=== PATIENT | female | born 1935 | race Caucasian/White ===

== ENCOUNTER 2018-07-28 16:51 | Inpatient (IN) | payer OTHER, MEDICARE ==
[~2018-07-28] VITALS: Ht 165.1 cm; Wt 77.6 kg
[~2018-07-28 16:51] MED LIST: ACETAMINOPHEN325 M1 PO; ADULT LOW DOSE81 MG PO; CALCIUM 500 +1 EAC5 PO; CENTRUM SILVER1 EAC4 PO; FISH OIL 1,0001 EAC7 PO; GLUCOPHAGE500 MG PO; LOVASTAT20 PO; NEURONTIN600 MG PO; NORVASC10 MG PO; PERCOCET 5-3251 EACH PO; PREMARIN0.625 MG PO; TRIAMTERENE-HC1 EAC1 PO; VITAMIN E400 UNIT PO; ZANAFLEX4 M1 PO; ZYVOX 600 MG PO
[2018-07-28 16:52] VITALS: BP 144/91
[2018-07-28 19:21] LABS: ABSOLUTE NEUTROPHILS 8.2 thou/uL (1.4-8.2); BASOPHILS 0.7 % (0.0-2.0); EOSINOPHILS 3.1 % (0.0-3.0); HEMOGLOBIN 12.4 gm/dL (12.0-15.0); LYMPHOCYTES 17.8 % (24.0-44.0); MCH 31.2 pg (26.0-34.0); MCHC 35.3 g/dL (28.0-37.0); MCV 88.3 fL (80.0-100.0); MONOCYTES 7.1 % (1.0-8.0); PLATELET COUNT 342 thou/uL (150-400); POLYS 71.3 % (36.0-66.0); RBC 3.97 mil/uL (4.20-5.00); RDW 13.1 % (10.5-14.5); WBC 11.5 thou/uL (4.0-11.0)
[2018-07-28 19:29] LABS: CALCIUM 9.4 mg/dL (8.5-10.1); CREATININE 0.8 mg/dL (0.6-1.0); POTASSIUM 3.9 mmol/L (3.5-5.1)
[2018-07-28 21:14] VITALS: BP 111/63
[2018-07-28 21:25] VITALS: BP 111/63
--- NOTE | 2018-07-28 21:40 | NUR ---
Pt. admitted to the unit from the emergency room via cart accompanied by staff and dgt. Pt. is alert and oriented. Admission assessment and history is completed. She offers no c/o pain. Bed alarm is on.
[2018-07-28 22:00] VITALS: BP 135/51
[2018-07-28] MEDS ORDERED: ATIVAN0.5 MG (23:13)
[2018-07-28] MEDS ORDERED: ESTRADIOL 1 MG T1 M1 PO (23:14)
[2018-07-28] MEDS ORDERED: VITAMIN D3400 UNIT PO (23:16)
[2018-07-28] MEDS ORDERED: PYRIDOXINE HCL50 MG (23:17)
[2018-07-28] MEDS ORDERED: MELATONIN3 MG (23:18)
[2018-07-28] MEDS ORDERED: CALCIUM 500 +1 EAC5 (23:23)
[2018-07-29 03:45] VITALS: BP 133/77
--- NOTE | 2018-07-29 05:30 | NUR ---
Pt. rested quietly at short intervals during the night when checked on during frequent rounds. Had pain med for c/o pain in her foot (see emar) which was helpful. Up to the bedside comode with standby assistance. Bed alarm is on.
[2018-07-29 08:16] VITALS: BP 146/60
--- NOTE | 2018-07-29 09:15 | NUR ---
WOUND CONSULT; ASSESSMENT COMPLETED OF THE FEET BILATERALLY. 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 NO DRAINAGE BUT PINK AND WARM TO TOUCH. THE RIGHT GREAT TOE IS CALLOUSED. THE PATIENT STATES SHE SEES PODIATRY FOR THIS. RECOMMENDATIONS; 1- CONSIDER CONSULTING DR JAIME TRIPP (PODIATRY) DISCUSSED WITH JOEY
[2018-07-29 09:25] LABS: URINE BILIRUBIN NEGATIVE (Negative); URINE BLOOD NEGATIVE (Negative); URINE CLARITY CLEAR; URINE COLOR YELLOW; URINE GLUCOSE-RANDOM* NEGATIVE (Negative); URINE KETONES NEGATIVE (Negative); URINE LEUKOCYTES-REFLEX NEGATIVE (Negative); URINE NITRITE-REFLEX NEGATIVE (Negative); URINE PROTEIN (DIPSTICK) NEGATIVE (Negative); URINE UROBILINOGEN 0.2 E.U./dl (0.2-1.0)
[2018-07-29 15:36] VITALS: BP 142/64
--- NOTE | 2018-07-29 16:27 | NUR ---
PT ADMITTED RELATED TO LEFT DIABETIC FOOT INFECTION. CM REVIEWED CHATRT AND SPOKE WITH CARE TEAM. CM MET WITH PT AT BEDSIDE THIS DAY. PT IS A&OX4. CM ROLE INTRODUCED. PT INDICATED SHE LIVES IN A HOUSE WITH HER DTR WITH 2 STESPS TO ENTER AND NONE INSIDE. PT INDICATED SHE HAD USED A CANE TO ASSIST WITH MOBILITY AND THAT SHE HAS A FWW SHE CAN USE TOO. PT INDICATED SHE HAD [facility] IN THE PAST. PT INDICATED SHE PLANS TO RETURN HOME ONCE MEDICALLY STABLE. CM TO FOLLOW INDICATED WITH DC PLANNING.
--- NOTE | 2018-07-29 18:11 | NUR ---
PT STABLE THROUGHOUT SHIFT. PT C/O PAIN THROUGHOUT SHIFT, TREATED WITH MEDICATION WHICH OFFERED PARTIAL RELIEF. PT RESTING COMFORTABLY.
[2018-07-29 19:43] VITALS: BP 141/54
[2018-07-30 00:08] LABS: GLYCOHEMOGLOBIN (HGB A1C) 6.2 % (4.8-5.6)
--- NOTE | 2018-07-30 03:20 | NUR ---
PATIENT AOX4 MAKES NEEDS KNOWN. PATIENT IS NON COMPLIANT WITH CARE AND MEDS. PATIENT REFUSED VANCOMYCING, LEVONOX SQ, HS MEDS PATIENT CONTINUES TO SAY SHE HAS TO TALK TO THE DOCTOR BEFORE SHE TAKES THE ANY MEDICATION.PATIENT EDUCATED THE NEED OF TAKING IV VANCOMYCIN AND LEVONOX,BUT PATIENT DECLINED SAYING THE ANTIBIOTIC IS MAKING HER HAVE LOOSE STOOLS AND SHE DONT NEED LEVONOX BECAUSE SHE HAS NEVER HAD BLOOD CLOTS. DIRECTOR RECORDS MANAGEMENT CALLED AND NOTIFIED OF PATIENT REFUSING ANTIBIOTIC AND LEVONOX. NO NEW ORDER BUT TO NOTIFIED IN THE AM. PATIENT REEDUCATED TO CALL FOR HELP AND AVODING TO BEAR WEIGHT ON BLE, PATIENT FORGETS AND AMBULATES IN THE ROOM AND POSSIBLE PATIENT KNOWNS HOW TO DISCONECT THE ALARM. PATIENT BLE DRESSINGS ARE C/D/I. PATIENT DENIED PAIN OR DISCOMFORT. PATIENT IN BED ASLEEP AT THIS TIME BREATHING REGULAR AND UNLABOURED.
[2018-07-30 05:05] VITALS: BP 142/66
[2018-07-30 08:32] VITALS: BP 137/54
[2018-07-30 14:37] VITALS: BP 105/70
[2018-07-30 14:43] VITALS: BP 141/59
[2018-07-30 15:08] VITALS: BP 141/59
--- NOTE | 2018-07-30 15:22 | NUR ---
PHYSICIAN INDICATED THAT AFTER PODIATRY VISITS THIS DAY PT MAY BE MEDICALLY STABLE TO DISCHARGE HOME. CM NOTIFIED PT AND SHE INDICATED THAT SHE AND HER DTR USE A TRANSPORT COMPANY AND SHE ASKED THAT CM CALL HER DTR TO INFORM HER OF POSSIBLE DISCHARGE. CM CALLED AND SPOKE WITH PT'S DTR HILL SHE INDICATED THAT THEY USE 10/10 TAXI. CM INDICATED THAT NURSE WOULD CALL [facility] LATER ON AND NOTIFY HER IF TRANSPORT NEEDS TO BE ARRANGED. CM NOTIFIED [facility] THAT PT WOULD LIKE TO RESUME HH SERVICES UPON DC. NO OTHER CM INTERVENTION INDICATED AT THIS TIME. CASE CLOSED.
--- NOTE | 2018-07-30 17:46 | NUR ---
PT STABLE THROUGHOUT SHIFT. PT C/O PAIN WHICH WAS TREATED WITH MEDICATION. DRESSINGS CHANGED. POSSIBLE DC TOMORROW.
[2018-07-30 19:56] VITALS: BP 147/61
[2018-07-31 03:41] VITALS: BP 153/72
[2018-07-31 07:30] VITALS: BP 152/69
[2018-07-31 07:54] LABS: FOLIC ACID 25.7 ng/mL (8.6-58.9)
--- NOTE | 2018-07-31 11:32 | HC ---
[facility] [place] [address] CONSULTATION Name: RODRIGO GRIMES Room #: 461-P ADM IN M.R.#: [id number] Admission: 07/28/18 ������������������ Attend Phys: Kade Maddox MD Discharge: ������������������ Date of : 34 Report #: [id number] THIS REPORT FOR: //name// CC: Rod Dill DATE OF SERVICE: 07/29/2018 INTRODUCTION: The patient is an 83-year-old woman who has been admitted to [facility] with cellulitis and ulceration of the left foot and ulceration of the right great toe stump. 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 She has had issues with a mid foot deformity consistent with a Charcot foot and subsequently has a maximum point of weightbearing pressure in the right medial arch. This is in the area of current infection source. She states that several weeks ago, she noted increasing redness and drainage in the area and eventually has led to full cellulitis involving the dorsum of her foot to the ankle level. She has also had some groin pain on this limb as well. A recent venous Doppler has demonstrated no evidence of DVT. The right foot hallux stump has historically been a source for abnormal weightbearing pressure, callus development and preulceration. Currently, there is an area of drainage on the dorsal lateral aspect of the stump and a thick callus beneath the weightbearing area of this stump. There is no apparent cellulitis of this foot. The patient had been outfitted with specialty footwear and wears them regularly. The quality of these insoles was viewed as reasonably good on her last visit to my office in March 2018. Currently, she is being seen for consultation regarding the foot wounds and cellulitis. PAST MEDICAL HISTORY: Also includes a history of hypercholesterolemia, high blood pressure. She has had difficulty sleeping due to anxiety. ALLERGIES: THE PATIENT HAS ALLERGIES TO MANY ANTIBIOTICS INCLUDING PENICILLIN AND CEPHALEXIN. Currently, she is on vancomycin for her cellulitis. The remainder of her past medical history with regard to this consultation is unremarkable. PHYSICAL EXAMINATION: EXTREMITIES: Her pedal exam reveals dorsalis pedis, posterior tibial pulses [address] [address] CONSULTATION Name: RODRIGO GRIMES Room #: 461-P ADM IN M.R.#: [id number] Admission: 07/28/18 ������������������ Attend Phys: Kade Maddox MD Discharge: ������������������ Date of : 34 Report #: [id number] graded at 1/4 bilaterally. Capillary refill time is within normal limits. NEUROLOGICAL: The patient lacks a normal sensation in both feet with lost protective threshold as tested with [place] monofilament. Left foot, most notably has a 4 cm raised area of inflammation with a central nidus of skin injury. This area was debrided following skin prep and was noted to be full thickness blister with a central wound area of approximately 2 cm, did not track to deeper tissues. It did bleed reasonably well and seemed to be well perfused. The tissue underlying this heavy callus was macerated. No pus or drainage could be expressed from the area despite the fluctuance from that zone, which is likely all due to repetitive trauma from weightbearing. The cellulitis extends up onto the forefoot. There is no proximal lymphangitis. No other pathology or ulcerations are noted on this left foot. The right foot was inspected and there is a large callus on the plantar medial aspect of the right hallux stump, which upon debridement yields a 1.5 cm ulceration that does not extend to deeper tissues. This effectively is a very large blister that incorporated the entire plantar aspect of the hallux stump extending onto the dorsal lateral aspect of the toe. All devitalized tissue was unroofed and cleansed and dressed with antibiotic ointment and sterile dressings. The left foot wound was cultured for aerobic, anaerobic bacteria and it was similarly cleansed and dressed. IMPRESSION: 1. Diabetes mellitus with diabetic peripheral neuropathy. 2. Bilateral foot wounds associated with neuropathic origin and altered weightbearing distribution. The wounds currently are superficial and based on radiographs, do not appear to involve deeper osseous structures. This would be confirmed and substantiated by the clinical findings upon debridement. PLAN: The patient's condition was reviewed with her. As mentioned above, the wounds were debrided, cleansed and dressed. I have ordered postoperative shoes for a very limited standing, walking to go to the bathroom. For the most part, she should be nonweightbearing on these sites. Local wound care should be sufficient with daily dressing change including cleansing with sterile saline and triple antibiotic ointment along with heavy gauze bandaging. The patient's antibiotic selection is appropriate and hopefully, she will respond accordingly, transitioned to outpatient management and antibiotics selection may be influenced by the results of her culture and sensitivity. I will follow her closely during her hospital stay and will be happy to follow up with her on an outpatient basis as well. ��������������������������������������������� <ELECTRONICALLY SIGNED> ���������������������������������������� By: Gokul Dunbar DPM ��������������������������������������������� 07/31/18 1132 [id number] [id number] Gokul Dunbar, ETHAN /donavan
[2018-07-31 14:35] VITALS: BP 145/64
[2018-07-31 16:09] VITALS: BP 141/59
[2018-07-31] MEDS ORDERED: DOXYCYCLINE 10100 MG PO (16:15)
[2018-07-31] MEDS ORDERED: TRIPLE ANTIB28.35 GM TOP (16:16)
[2018-07-31] MEDS ORDERED: LIDOPATCH1 EACH TRANSDERM (16:16)
[2018-07-31 17:01] VITALS: BP 141/59
[2018-07-31 18:49] VITALS: BP 141/59
--- NOTE | 2018-07-31 18:51 | NUR ---
DR. NYE VISITED AND CHANGED DRESSING TO BOTH FEET. LEFT FOOT RED, NO OPEN AREA NOTED. RIGHT FOOT BIG TOE HAS A HEALING SORE ON BOTTOM OF TOE. NO OPEN AREA. POSTOP SHOES PROVIDED. DR. NYE STATED HE WILL F/U WITH PATIENT NEXT WEEK IN HIS OFFICE. SPOKE WITH PATIENT'S DTR HILL ON THE PHONE AND SHE IS CONCERNED REGARDING HER MOTHER'S OUTBURSTS AND ANXIETY AT HOME. REFERRED HER TO PATIENT [facility] AND THEN ASKED DR. WEBB TO CALL HER. MEDICATED WITH OXYCODONE FOR BACK PAIN AND HELPFUL. RIGHT ARM IV BECAME PAINFUL AND SWOLLEN SO REMOVED. DID RECEIVED ALL OF VANCOMYCIN THIS AM. TOLERATING DIET WELL. DISCHARGED TO HOME IN STABLE CONDITION.
== END 2018-07-31 18:49 | disposition home health service (06) | DRG 853 ==
LOC: ER 16:51 → 4W 20:18 → EROBS 20:18 → 4W 21:25
PROVIDERS: Nurse Practitioner Acute Care; Nurse Practitioner Family; Student in an Organized Health Care Education/Training Program; ADMIT Hospitalist
DX: A41.9 Sepsis, unspecified organism (principal); E43 Unspecified severe protein-calorie malnutrition; L03.116 Cellulitis of left lower limb; I10 Essential (primary) hypertension; F41.9 Anxiety disorder, unspecified; M81.0 Age-related osteoporosis without current pathological fracture; E11.42 Type 2 diabetes mellitus with diabetic polyneuropathy; E11.51 Type 2 diabetes mellitus with diabetic peripheral angiopathy without gangrene; E78.00 Pure hypercholesterolemia, unspecified; Z89.422 Acquired absence of other left toe(s); Z88.1 Allergy status to other antibiotic agents; Z88.0 Allergy status to penicillin; Z90.49 Acquired absence of other specified parts of digestive tract; Z82.49 Family history of ischemic heart disease and other diseases of the circulatory system; Z87.891 Personal history of nicotine dependence; Z79.82 Long term (current) use of aspirin; Z90.710 Acquired absence of both cervix and uterus; Z89.421 Acquired absence of other right toe(s); Z79.899 Other long term (current) drug therapy; Z68.28 Body mass index [BMI] 28.0-28.9, adult; E11.621 Type 2 diabetes mellitus with foot ulcer
CPT/HCPCS: 10040

== ENCOUNTER → 2019-08-05 | Outpatient (CLI) | payer OTHER, MEDICARE ==
[~2019-08-05] MED LIST changes: +ATIVAN0.5 MG; +CALCIUM 500 +1 EAC5; +DOXYCYCLINE 10100 MG PO; +ESTRADIOL 1 MG T1 M1 PO; +LIDOPATCH1 EACH TRANSDERM; +MELATONIN3 MG; +PYRIDOXINE HCL50 MG; +TRIPLE ANTIB28.35 GM TOP; +VITAMIN D3400 UNIT PO
== END ==
LOC: RAD 15:30
DX: J98.11 Atelectasis (principal); R91.8 Other nonspecific abnormal finding of lung field

== ENCOUNTER → 2019-08-12 | Outpatient (CLI) | payer OTHER, MEDICARE | LOC: CAT 12:26 | DX: R91.8 Other nonspecific abnormal finding of lung field (principal); K44.9 Diaphragmatic hernia without obstruction or gangrene; I70.0 Atherosclerosis of aorta; J98.11 Atelectasis; R59.0 Localized enlarged lymph nodes ==

== ENCOUNTER → 2019-09-16 | Outpatient (CLI) | payer OTHER, MEDICARE | LOC: PET 09:00 | DX: R91.8 Other nonspecific abnormal finding of lung field (principal); M79.89 Other specified soft tissue disorders ==

== ENCOUNTER → 2019-09-22 | Outpatient (CLI) | payer OTHER, MEDICARE ==
[~2019-09-22] VITALS: Ht 162.6 cm; Wt 83.5 kg
[2019-09-22 09:42] LABS: HEMATOCRIT 41.1 % (37.0-47.0); HEMOGLOBIN 13.7 gm/dL (12.0-15.0); MCH 29.6 pg (26.0-34.0); MCHC 33.2 g/dL (28.0-37.0); MCV 88.9 fL (80.0-100.0); RBC 4.62 mil/uL (4.20-5.00); RDW 13.8 % (10.5-14.5); WBC 8.9 thou/uL (4.0-11.0)
[2019-09-22 09:51] LABS: CALCIUM 9.4 mg/dL (8.5-10.1); CREATININE 0.7 mg/dL (0.6-1.0); POTASSIUM 4.3 mmol/L (3.5-5.1)
[2019-09-22 10:00] LABS: PROTIME 10.6 Seconds (9.3-11.4)
[2019-09-22 10:09] VITALS: BP 136/70
[2019-09-22 11:52] VITALS: BP 145/66
[2019-09-22 11:57] VITALS: BP 138/62
[2019-09-22 12:02] VITALS: BP 131/58
[2019-09-22 12:51] VITALS: BP 125/55
--- NOTE | 2019-09-25 14:12 | PATH ---
[facility] [address] [place] [address] PATHOLOGY RPT PROCEDURE Name: NATALIA GRIMES Room #: REG GER Johnson.#: [id number] Admission: 09/22/19 Date of : 34 Discharge: Report #: [id number] Path Case #: [id number] [facility] Accession Number: [id number] . 01 Material submitted: . abdomen - RIGHT SUBCUTANEOUS NODULE, RIGHT HILAR MASS, RIGHT ABDOMINAL SUBQ NODULE. Modifiers: right . 01 Clinical history: . Right subcutaneous nodule right hilar mass with mets to skin . 02 Diagnosis: Tissue designated as "right abdominal subcutaneous nodule", needle core biopsy: - POORLY DIFFERENTIATED/HIGH GRADE NEUROENDOCRINE CARCINOMA (PLEASE SEE COMMENT). [facility] 09/25/2019 1313 Local . 02 Comment: Examination shows a small blue cell tumor with nuclear moulding, high nuclear to cytoplasmic ratio, ample necrosis as well as apoptosis. Multiple properly controlled immunohistochemical stains are performed on block A1. The tumor shows strong and diffuse nuclear reactivity present with TTF-1. Synaptophysin shows strong granular reactivity, chromogranin is non-reactive whereas CD56 shows strong membranous reactivity supporting the neuroendocrine nature of this tumor. AE1/AE3 shows perinuclear dot-like reactivity within the tumor cells. CK20, p63, and CD45 are non-reactive within the tumor cells. Chromogranin shows no reactivity as well. CK7 shows membranous reactivity with a perinuclear reactivty pattern as well. . The non-reactive immunohistochemical stains argue against a lymphoma, squamous cell carcinoma, as well as a Eduardo cell carcinoma (skin primary).The reactive stains support a high grade or poorly differentiated neuroendocrine tumor, likely a small cell carcinoma. . Co-review: Slide A1 - level [address] Genoveva Rosario . Findings of this case are telephoned to Dr. Bucky Cid in the morning of 09/24/2019, and are discussed with Dr. Nathen Love at 12:50 p.m. on 09/25/2019. (IUV/db; 09/25/2019) . 02 Electronically signed: . Leanne Hunter MD, Pathologist NPI- [id number] . [address] [place] [id number] PATHOLOGY RPT PROCEDURE Name: NATALIA GRIMES [place] Room #: REG GER Denson#: [id number] Admission: 09/22/19 Date of : 34 Discharge: Report #: [id number] Path Case #: [id number] Gross description: . The specimen is received in formalin, labeled "Ian, Natalia" and "right abdominal sub Q nodule" per problem specimen form. Received are 4 delicate pink haque needle cores measuring between 0.8 cm and 1.2 cm in length and 0.1 cm each in diameter which are entirely submitted in A1-A3. (SDY; 09/23/2019) SYU/SYU 09/23/2019 1428 Local . 02 Pathologist provided ICD-10: C7A.1 . 02 CPT . 641977, A40018, E18424 Specimen Comment: A courtesy copy of this report has been sent to [phone], [phone] Specimen Comment: [phone], Specimen Comment: Report sent to ,DR FONSECA / DR CISSE Performed at: [address], [place] [id number] MD Bryant Baker MD Phone: [phone] Performed at: [address] [id number] MD Leanne Hunter MD Phone: [phone]
--- NOTE | 2019-09-28 13:08 | PATH ---
[facility] [place] [address] PATHOLOGY RPT PROCEDURE Name: RODRIGO GRIMES Room #: REG GER Johnson.#: [id number] Admission: 09/22/19 Date of : 34 Discharge: Report #: [id number] Path Case #: [id number] Note [facility] Accession Number: [id number] TESTS RESULT FLAG UNITS REF RANGE LAB Clinician Provided Cytology Information No. of containers..01 Other (Miscellaneous) Source: [A] 01 RIGHT PLEURAL FLUID DIAGNOSIS: [A] 02 RIGHT PLEURAL FLUID POSITIVE FOR MALIGNANT CELLS. METASTATIC UNDIFFERENTIATED SMALL CELL CARCINOMA. THIS INTERPRETATION INCLUDES EVALUATION OF A CELL BLOCK. COMMENT: EXAMINATION SHOWS SCATTERED RARE COLLECTIONS OF SMALL BLUE CELLS WITH SCANT CYTOPLASM AND OCCASIONAL APOPTOTIC BODIES WITHIN. PROPERLY CONTROLLED IMMUNOHISTOCHEMICAL STAINS ARE PERFORMED AND THE TUMOR AGGREGATES SHOW A MEMBRANOUS REACTIVITY WITH BRIANNA-EP4, NUCLEAR AND STRONG REACTIVITY WITH TTF-1, AND STRONG GRANULAR REACTIVITY WITH SYNAPTOPHYSIN. CALRETININ AND DESMIN ARE REACTIVE WITHIN THE NUMEROUS REACTIVE MESOTHELIAL CELLS PRESENT WITHIN THE BACKGROUND. THESE FINDINGS ARE COMPATIBLE WITH A METASTATIC SMALL CELL CARCINOMA WITHIN THIS PLEURAL FLUID. DR. SEBASTIAN AGUILAR HAS SEEN THIS CASE AND CONCURS WITH THE DIAGNOSIS. FINDINGS OF THIS CASE ARE DISCUSSED WITH DR. HODGE AT APPROXIMATELY 1:00 P.M. ON 09/25/2019. (IUV:RADHA/09/25/2019) Pathologist ICD10: 02 J91.0 Signed out by: Leanne Hunter MD, Pathologist NPI- [id number] Performed by: Valentina Woods, Chest Pain Coordinator ([facility]) Gross description: 01 50ML, CLOUDY ORANGE, 1 TP 1 CB /LCS 09/25/2019 1208 Local FLAG LEGEND: L-Low Normal,H-High Normal,LL-Alert Low,HH-Alert High <-Panic Low,>-Panic High,A-Abnormal,AA-Critical Abnormal Performed at: 01 [facility] [address] [place] [address] PATHOLOGY RPT PROCEDURE Name: SYDNEYRODRIGO Room #: REG [facility]#: [id number] Admission: 09/22/19 Date of : 34 Discharge: Report #: [id number] Path Case #: [id number] [place] [address] Bryant Baker MD, 02 [facility] [address] [id number] Leanne Hunter MD, Specimen Comment: A duplicate report has been generated due to demographic updates. Performed at: 01 [facility] [address] [facility] [address], [place], [place] [id number] MD Bryant Baker MD Phone: [phone]
== END | disposition home or self-care (01) ==
LOC: CAT 09-18 10:20
PROVIDERS: Internal Medicine Pulmonary Disease
DX: C7A.1 Malignant poorly differentiated neuroendocrine tumors (principal); J91.0 Malignant pleural effusion; R91.8 Other nonspecific abnormal finding of lung field; J98.11 Atelectasis; I10 Essential (primary) hypertension; E78.00 Pure hypercholesterolemia, unspecified; E11.9 Type 2 diabetes mellitus without complications; Z90.49 Acquired absence of other specified parts of digestive tract; Z90.710 Acquired absence of both cervix and uterus; Z98.890 Other specified postprocedural states; Z79.899 Other long term (current) drug therapy; Z88.0 Allergy status to penicillin; Z88.8 Allergy status to other drugs, medicaments and biological substances